=== PATIENT | male | born 1995 | race African-American/Black ===

== ENCOUNTER 2021-01-03 23:21 | Emergency (ER) | payer BC ==
[~2021-01-03] VITALS: Ht 162.6 cm; Wt 72.6 kg
[2021-01-04] MEDS ORDERED: ZITHROMAX500 MG PO (05:36)
== END 2021-01-04 06:06 | disposition home or self-care (01) ==
LOC: ER 23:21
DX: B34.9 Viral infection, unspecified (principal); R50.9 Fever, unspecified; Z20.822 Contact with and (suspected) exposure to COVID-19